=== PATIENT | female | born 1990 | race Caucasian/White ===

== ENCOUNTER → 2022-03-21 03:02 | Observation (INO) ==
[2022-03-21 00:33] LABS: Bacteria,Urine Few per hpf (None-Few); Bilirubin,Urine Negative (Negative); Blood,Urine Large (Negative); Clarity,Urine Turbid (Clear); Color,Urine Light-Yellow (Yellow); Glucose,Urine (UA) Normal (Normal); Ketones,Urine Negative (Negative); Leukocyte Esterase,Urine Negative (Negative); Mucus,Urine Few per lpf (None-Few); Nitrite,Urine Negative (Negative); PH,Urine 7.5 pH Units (5.0-8.0); Protein,Urine Negative (Neg-Trace); Specific Gravity,Urine 1.007 (1.010-1.025); Squamous Epithelial Cell,Urine Moderate per hpf (None-Few); Urobilinogen,Urine Normal (Normal); WBC,Urine 0-3 per hpf (0-3)
[2022-03-21 01:33] LABS: Candida DNA Not Detected (Not Detect); Gardnerella DNA Not Detected (Not Detect); Trichomonas DNA Not Detected (Not Detect)
== END | disposition home or self-care (01) ==
LOC: 1NENULAB
PROVIDERS: ADMIT Registered Nurse; ATTEND Registered Nurse

== ENCOUNTER → 2022-04-06 13:12 | Observation (INO) ==
[~2022-04-06 13:12] MED LIST: EPHEDrine sulfate 50 MG/10 ML VIAL IVP PRN; Epidural Premix (fent/bupiv) 110 ML EP SCH
== END | disposition home or self-care (01) ==
LOC: 1NENULAB
PROVIDERS: ADMIT Registered Nurse; ATTEND Registered Nurse

== ENCOUNTER 2022-04-21 01:04 | Inpatient (IN) ==
[~2022-04-21 01:04] MED LIST changes: +*HR* Nalbuphine 10 MG/ML AMPUL IV PRN; -EPHEDrine sulfate 50 MG/10 ML VIAL IVP PRN; -Epidural Premix (fent/bupiv) 110 ML EP SCH; +Famotidine 20 MG/2 ML VIAL IVP PRN; +Metoclopramide 10 MG/2 ML VIAL IVP PRN; +Naloxone 0.4 MG/ML INJ IVP PRN; +Ondansetron 4 MG/2 ML VIAL IVP PRN
[2022-04-21] MEDS ORDERED: Ringers Solution, Lactated 1,000 ML IVC SCH (01:15)
[2022-04-21] MEDS ORDERED: Oxytocin 30 UNIT/503 ML BAG IVC SCH (01:15)
[2022-04-21 01:45] LABS: Basophils % 0.3 %; Eosinophils # 0.1 K/mcL (0.0-0.6); Eosinophils % 0.5 %; Hematocrit 39.6 % (35.3-44.9); Hemoglobin 13.6 g/dL (11.5-15.4); Immature Granulocytes % 1.2 % (0-4); Lymphocytes # 2.8 K/mcL (0.6-4.6); Mean Corpuscular HGB Conc 34.3 g/dL (31.6-35.5); Mean Corpuscular Hemoglobin 29.8 pg (28.0-33.3); Mean Corpuscular Volume 86.8 fL (83.0-100.0); Mean Platelet Volume 10.4 fL (9.4-12.4); Monocytes # 0.7 K/mcL (0.0-1.3); Monocytes % 5.3 %; Neutrophils # 9.5 K/mcL (1.6-8.9); Platelet Count 167 K/mcL (140-400); Red Blood Count 4.56 M/mcL (3.82-4.97); Red Cell Distribution Width 13.2 % (11.5-14.5); Segmented Neutrophils % 71.7 %; White Blood Count 13.3 K/mcL (4.3-11.1)
[2022-04-21 01:54] LABS: Amphetamine Screen,Urine Negative ng/mL (Cutoff=1000); Barbiturate Screen,Urine Negative ng/mL (Cutoff=200); Benzodiazepines Screen,Urine Negative ng/mL (Cutoff=200); Cannabinoid Screen,Urine Negative ng/mL (Cutoff = 50); Cocaine Screen,Urine Negative ng/mL (Cutoff= 300); Opiate Screen,Urine Negative ng/mL (Cutoff=300); Phencyclidine Screen,Urine Negative ng/mL (Cutoff=25)
[2022-04-22] MEDS ORDERED: Lanolin 7 G OINT...G. TP PRN (00:17)
[2022-04-22] MEDS ORDERED: Ondansetron ODT 4 MG TAB.RAPDIS SL PRN (00:17)
[2022-04-22] MEDS ORDERED: Measles/Mumps/Rubella Vacc 0.5 ML VIAL SQ PRN (00:17)
[2022-04-22] MEDS ORDERED: Oxytocin 30 UNIT/503 ML BAG IVC SCH (00:17)
[2022-04-22] MEDS ORDERED: Benzocaine/Menthol 56 GM AEROSOL SPRAY TP PRN (00:17)
[2022-04-22] MEDS ORDERED: *HR* OxyCODONE Immed Rel 5 MG TABLET PO PRN (00:17)
[2022-04-22] MEDS: Acetaminophen 325 MG TABLET PO SCH ×4 (00:29→21:36)
[2022-04-22] MEDS: Ibuprofen 600 MG TABLET PO SCH ×4 (01:18→21:35)
[2022-04-22 04:38] LABS: Basophils % 0.2 %; Segmented Neutrophils % 86.5 %
[2022-04-22 04:39] LABS: Basophils # 0.1 K/mcL (0.0-0.2); Hematocrit 29.6 % (35.3-44.9); Immature Granulocytes % 0.6 % (0-4); Lymphocytes # 2.1 K/mcL (0.6-4.6); Lymphocytes % 8.5 %; Mean Corpuscular HGB Conc 34.5 g/dL (31.6-35.5); Mean Corpuscular Hemoglobin 29.7 pg (28.0-33.3); Mean Platelet Volume 10.4 fL (9.4-12.4); Monocytes % 4.2 %; Neutrophils # 21.4 K/mcL (1.6-8.9); Platelet Count 152 K/mcL (140-400); Red Blood Count 3.44 M/mcL (3.82-4.97); White Blood Count 24.7 K/mcL (4.3-11.1)
[2022-04-22 04:40] LABS: Hemoglobin 10.2 g/dL (11.5-15.4)
[2022-04-22] MEDS ORDERED: Prenatal Vit/FA 1 EACH TABLET PO SCH (09:00)
[2022-04-22 21:53] VITALS: BP 102/68; PULSE 79; TEMP 98.1; O2SAT 98
== END 2022-04-22 23:25 | disposition home or self-care (01) | DRG 806 ==
LOC: 1NENULAB → 1NENUOBS 04-22 00:55
PROVIDERS: ADMIT Registered Nurse; ATTEND Registered Nurse